=== PATIENT | male | born 1965 | race Caucasian/White ===

== ENCOUNTER 2018-03-26 00:32 | Emergency (ER) | payer MEDICAID, OTHER, SELFPAY ==
[~2018-03-26] VITALS: Ht 170.2 cm; Wt 75.0 kg
[2018-03-26] MEDS ORDERED: VICODIN (00:38)
[2018-03-26] MEDS ORDERED: PREDNISONE (00:38)
--- NOTE | 2018-03-26 00:50 | NUR ---
PT IN WN IN [facility]; YEISON MICHEL AT BS. PT HAS OFFICER AT BS FOR PT OBSERVATION. AWAITING ORDERS AT THIS TIME. PT EDUCATED ON ER PROCESS AND VERBALIZES UNDERSTANDING.
[2018-03-26] MEDS ORDERED: LIDOCAINE-MPF 1%, 5ML ONE (00:55)
[2018-03-26] MEDS ORDERED: LIDOCAINE-MPF 1%, 5ML INFIL ONE (01:00)
[2018-03-26] MEDS ORDERED: ZIPRASIDONE 20MG CAPSULE ONE (02:14)
[2018-03-26] MEDS ORDERED: IBUPROFEN 200 MG TABLET ONE (02:15)
[2018-03-26] MEDS ORDERED: ZIPRASIDONE 20 MG INJ IM ONE ×2 (02:15→02:30)
[2018-03-26] MEDS ORDERED: IBUPROFEN 200 MG TABLET PO ONE (02:30)
--- NOTE | 2018-03-26 02:53 | NUR ---
PHARMACY RESIDENT AT TO CLEAN PT WOUNDS. ERP NOTIFIED OF PROGRESS. PT CALM IN ROOM AT THIS TIME WITH OFFICER AT BEDSIDE.
[2018-03-26] MEDS ORDERED: DIPH,PERTUSS(ACELL),TET VAC/PF 0.5 ML IM-VACC ONE ×2 (03:30→03:39)
[2018-03-26] MEDS ORDERED: IBUPROFEN 800 MG TABLET ONE (03:59)
[2018-03-26] MEDS ORDERED: ONDANSETRON ODT 4 MG ONE (03:59)
[2018-03-26] MEDS ORDERED: ACETAMINOPHEN 500 MG TABLET ONE (04:03)
--- NOTE | 2018-03-26 05:16 | NUR ---
Note [place] in ED - 03/26/18 at 0519 by OLIVERIO PT SLEEPING IN GURNEY; SHIRAN. PT HAS OFFICER AT BEDSIDE ASKING ABOUT PT DISPO. AWAITING DR. PRESCOTT FOR MEDICAL CLEARANCE AT THIS TIME. ALL QUESTIONS ANSWERED. OFFICER DENIES ANY OTHER NEEDS AT THIS TIME.
--- NOTE | 2018-03-26 05:19 | NUR ---
PT SLEEPING IN RNEY; KELLEY. PT HAS OFFICER AT BEDSIDE ASKING ABOUT PT DISPO. AWAITING DR. PRESCOTT FOR MEDICAL CLEARANCE AT THIS TIME. ALL QUESTIONS ANSWERED. OFFICER DENIES ANY OTHER NEEDS AT THIS TIME.
[2018-03-26 05:50] VITALS: BP 142/89
--- NOTE | 2018-03-26 06:20 | NUR ---
PT D/C WITH D/C SUMMARY IN CUSTODY OF [facility] OFFICER. PT ASLEEP AND BEING TRANSPORTED BY GUARD. PT AND OFFICER DENY ANY OTHER NEEDS PERTAINING TO THIS VISIT. ALL PAPERWORK PROVIDED TO OFFICER PER REQUEST. PT VSS UPON D/C. PT AMBULATES WITH STEADY GAIT TO TRANSPORT VEHICLE THROUGH AMBULANCE BAY.
== END 2018-03-26 06:24 | disposition home or self-care (01) ==
LOC: ED 01:42
DX: S02.32XA Fracture of orbital floor, left side, initial encounter for closed fracture (principal); S02.2XXA Fracture of nasal bones, initial encounter for closed fracture; S06.320A Contusion and laceration of left cerebrum without loss of consciousness, initial encounter; S06.310A Contusion and laceration of right cerebrum without loss of consciousness, initial encounter; X58.XXXA Exposure to other specified factors, initial encounter; Y93.89 Activity, other specified; Y92.410 Unspecified street and highway as the place of occurrence of the external cause; Y99.8 Other external cause status
CPT/HCPCS: 12051; 70450; 70486; 96372; 99284; J3486